=== PATIENT | female | born 1990 | race Hispanic/Latino ===

== ENCOUNTER 2023-10-03 14:45 | Outpatient (CLI) | payer OTHER | END 2023-10-03 14:46 | disposition home or self-care (01) | LOC: BICMAMMO 14:45 | PROVIDERS: ATTEND Family Medicine | DX: N63.22 Unspecified lump in the left breast, upper inner quadrant (principal); N64.59 Other signs and symptoms in breast | CPT/HCPCS: 77066; G0279 ==